=== PATIENT | male | born 1995 | race Caucasian/White ===

== ENCOUNTER 2022-04-01 03:29 | Emergency (ER) | payer MEDICAID ==
[~2022-04-01] VITALS: Ht 172.7 cm; Wt 68.0 kg
[2022-04-01 03:31] VITALS: BP 150/72
== END 2022-04-01 06:54 | disposition left against medical advice (07) ==
LOC: ER 03:29
DX: Z53.21 Procedure and treatment not carried out due to patient leaving prior to being seen by health care provider (principal)